=== PATIENT | female | born 1970 | race Caucasian/White ===

== ENCOUNTER 2018-01-01 19:59 | Emergency (ER) | payer OTHER ==
--- NOTE | 2018-01-01 20:08 | PDOC ---
History of Present Illness - General History Source: Patient Exam Limitations: No Limitations - History of Present Illness Initial Comments: 01/01/18 20:59 The patient is a 47 year old female, with a significant past medical history of HLD, who presents to the emergency department with, 4 days of worsening back pain. As per patient, she got up from her seat too fast when her pain onset. Her pain is localized to the sacroiliac joint and radiates to her right buttock. She denies any alleviating factors. She has taking diclofenac oral and gel, without relief. She denies any recent injuries. She denies lifting anything heavy. She denies recent fevers, chills, headache or dizziness. She denies recent nausea, vomit, diarrhea or constipation. She denies recent dysuria, frequency, urgency or hematuria. She denies recent chest pain or shortness of breath. Allergies: Penicillins. Past surgical history: None reported. Social history: Nonsmoker. Denies EtOH use and recreational drug use. <She Garsia - Last Filed: 01/01/18 21:04> <Lindsey Silva - Last Filed: 01/02/18 05:00> - General Chief Complaint: Pain, Acute Stated Complaint: PULLED MUSCLE RIGHT SIDE OF BACK Time Seen by Provider: 01/01/18 20:02 Past History <She Garsia - Last Filed: 01/01/18 21:04> <Lindsey Silva - Last Filed: 01/02/18 05:00> - Past Medical History Allergies/Adverse Reactions: Allergies Allergy/AdvReac Type Severity Reaction Status Date / Time Penicillins Allergy Verified 01/01/18 20:05 Home Medications: Ambulatory Orders Ketorolac Tromethamine [Toradol] 10 mg PO TID PRN #15 tablet 01/01/18 Oxycodone HCl/Acetaminophen [Percocet 5-325 mg Tablet] 1 tab PO Q6H PRN #6 tablet MDD 3 tabs 01/01/18 Review of Systems - Review of Systems Able to Perform ROS?: Yes Comments:: 01/01/18 20:59 CONSTITUTIONAL: Absent: fever, no chills, no fatigue EYES: Absent: visual changes ENT: Absent: ear pain, no sore throat CARDIOVASCULAR: Absent: chest pain, no palpitations RESPIRATORY: Absent: cough, no SOB GI: Absent: abdominal pain, no nausea, no vomiting, no constipation, no diarrhea GENITOURINARY: Absent: dysuria, no frequency, no hematuria MUSKULOSKELETAL: Present: Back pain. Absent: no arthralgia, no myalgia SKIN: Absent: rash NEURO: Absent: headache All Other Systems: Reviewed and Negative <She Garsia - Last Filed: 01/01/18 21:04> *Physical Exam - Vital Signs Last Vital Signs Temp Pulse Resp BP Pulse Ox 98.4 F 73 16 120/82 100 01/01/18 20:11 01/01/18 20:11 01/01/18 20:11 01/01/18 20:11 01/01/18 20:11 - Physical Exam Comments: 01/01/18 21:04 GENERAL: The patient is awake, alert, and fully oriented, in no acute distress. HEAD: Normal with no signs of trauma. EYES: Pupils equal, round and reactive to light, extraocular movements intact, sclera anicteric, conjunctiva clear with no pallor. ENT: Ears normal, nares patent, oropharynx clear without exudates. Moist mucous membranes. NECK: Normal range of motion, supple without lymphadenopathy, JVD, or masses. LUNGS: Breath sounds equal, clear to auscultation bilaterally. No wheeze/ crackles. HEART: Regular rate and rhythm, normal S1 and S2 without murmur or rub. BACK: No flank pain. No meningeal signs. ABDOMEN: Soft/nontender/nondistended. BS wnl. No guarding or rebound. No palpable masses. No hepatosplenomegaly. +EXTREMITIES: Tenderness to the right sacroiliac joint. Positive right straight leg raise. Normal range of motion, no edema. No clubbing or cyanosis. No cords , erythema, or tenderness. NEUROLOGICAL: Cranial nerves II through XII grossly intact. Normal speech, normal gait. PSYCH: Normal mood, normal affect. SKIN: Warm, Dry, normal turgor, no rashes or lesions noted. <She Garsia - Last Filed: 01/01/18 21:04> ED Treatment Course - ADDITIONAL ORDERS Additional order review: Laboratory Results 01/01/18 20:10 Urine Color Yellow Urine Appearance Sl cloudy Urine pH 5.5 Ur Specific [place] 1.010 Urine Protein Negative Urine Glucose (UA) Negative Urine Ketones Negative Urine Blood Trace-intact H Urine Nitrite Positive Urine Bilirubin Negative Urine Urobilinogen 0.2 Ur Leukocyte Esterase 3+ H Urine RBC 5-10 Urine WBC >100 Ur Epithelial Cells Few Amorphous Urates Few Urine Bacteria Moderate Urine HCG, Qual Negative <She Garsia - Last Filed: 01/01/18 21:04> Progress Note - Progress Note Progress Note: Documentation has been prepared under my direction and personally reviewed by me in its entirety. I attest that this documented accurately reflects all work, treatment, procedures and medical decision making performed by me. 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 Patient does not recall actual trauma to the area but initial pain began when she suddenly stood up from a seated position. 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 Patient has not had relief despite use of diclofenac gel/tablets. Exam as noted. Patient was offered Toradol IM but refused. She will be given prescription for Toradol tablets. She also asked for stronger pain medication for nighttime use. She will be given a small (#6) prescription for Percocet 5/325. She is been given referral information to Dr. Lopez, spinal surgeon with whom she should arrange follow-up within the next few days. <Lindsey Silva - Last Filed: 01/02/18 05:00> *DC/Admit/Observation/Transfer - Attestations Scribe Attestion: 01/01/18 21:00 Documentation prepared by She Garsia, acting as medical instrument technician for Lindesy Silva MD. <She Garsia - Last Filed: 01/01/18 21:04> <Lindsey Silva - Last Filed: 01/02/18 05:00> Diagnosis at time of Disposition: Lower back pain Qualifiers: Chronicity: acute Back pain laterality: right Sciatica presence: with sciatica Sciatica laterality: sciatica of right side Qualified Code(s): M54.41 - Lumbago with sciatica, right side - Discharge Dispostion Disposition: HOME Condition at time of disposition: Stable - Prescriptions Prescriptions: Ketorolac Tromethamine [Toradol] 10 mg PO TID PRN #15 tablet PRN Reason: Back Pain Oxycodone HCl/Acetaminophen [Percocet 5-325 mg Tablet] 1 tab PO Q6H PRN #6 tablet MDD 3 tabs PRN Reason: Severe Pain - Referrals Referrals: London Lopez MD [Staff Physician] - Call tomorrow - Patient Instructions Printed Discharge Instructions: Low Back Pain Additional Instructions: Rest; avoid lifting/pulling heavy objects for the next week No work for the next 2 days Toradol 10 mg up to 3 times a day as needed for pain; take with food Percocet 5/325 as needed for severe pain Follow-up call orthopedic group () tomorrow for follow-up within the next 3 -4 days Drink plenty of water; we will call you if you need antibiotics for bladder infection Print Language: YEMENI - Post Discharge Activity Forms/Work/School Notes: Back to Work
[2018-01-01 20:19] VITALS: BP 120/82; PULSE 73; TEMP 98.4; BMI 29.2
[2018-01-01 20:41] LABS: HCG,QUALITATIVE URINE NEGATIVE
[2018-01-01 20:47] LABS: URINE APPEARANCE SL CLOUDY; URINE BILIRUBIN NEGATIVE (NEGATIVE); URINE COLOR YELLOW; URINE GLUCOSE (UA) NEGATIVE (NEGATIVE); URINE KETONE NEGATIVE (NEGATIVE)
[2018-01-01 20:48] LABS: PH,URINE 5.5 (4.5-8); URINE LEUK ESTERASE 3+ (NEGATIVE); URINE NITRITE POSITIVE (NEGATIVE); URINE PROTEIN NEGATIVE (NEGATIVE); URINE UROBILINOGEN 0.2 (0.2-1.0)
[2018-01-01 20:52] LABS: URINE WBC >100 (0-5)
[2018-01-01 20:53] LABS: AMORP URATES FEW /hpf (NONE SEEN); EPI CELLS FEW /HPF; URINE BACTERIA MODERATE /hpf (NEGATIVE)
== END 2018-01-01 21:10 | disposition home or self-care (01) ==
LOC: FER 19:59
DX: M54.41 Lumbago with sciatica, right side (principal); E78.5 Hyperlipidemia, unspecified; Z88.0 Allergy status to penicillin
CPT/HCPCS: 81003; 81015; 84703; 99281-25

== ENCOUNTER 2018-04-08 10:53 | Emergency (ER) | payer OTHER ==
[2018-04-08 10:58] VITALS: BP 129/96; PULSE 72; TEMP 98.5; BMI 30.9
--- NOTE | 2018-04-08 11:41 | PDOC ---
History of Present Illness - General Chief Complaint: Vaginal Bleeding Stated Complaint: i have my period x 3 weeks Time Seen by Provider: 04/08/18 11:41 History Source: Patient, Significant Other - History of Present Illness Initial Comments: 04/08/18 11:55 48 year old female with no PMH presents to ED for vaginal bleeding x15 days. She states that her period came a week early, and has lasted longer than usual. She states she was using 1-2 pads per day up until Tuesday, when the bleeding decreased to spotting. She denies clots. She denies pelvis pain/cramping, abdominal pain, nausea, vomiting, fever, chills, chest pain, shortness of breath , lightheadedness, vaginal discharge. Allergies - Penicillin Past History - Past Medical History Allergies/Adverse Reactions: Allergies Allergy/AdvReac Type Severity Reaction Status Date / Time Penicillins Allergy Verified 04/08/18 10:54 Home Medications: Ambulatory Orders Famotidine [Pepcid] 20 mg PO BID #28 tablet 04/08/18 Naproxen 500 mg PO BID #28 tablet 04/08/18 COPD: No Hypercholesterolemia: Yes Thyroid Disease: Yes - Suicide/Smoking/Psychosocial Hx Smoking History: Never smoked Have you smoked in the past 12 months: No Hx Alcohol Use: No Drug/Substance Use Hx: No Substance Use Type: None Review of Systems - Review of Systems Able to Perform ROS?: Yes Comments:: 04/08/18 12:14 General: denies fever, chills, night sweats, generalized weakness. HEENT: denies sore throat, rhinorrhea, ear pain. Heart: denies chest pain, palpitations, syncope, lower extremity swelling, diaphoresis. Respiratory: denies shortness of breath, cough, sputum production, hemoptysis. Abdomen: denies abdominal pain, nausea, vomiting, diarrhea, constipation, blood in stool. : admits to vaginal bleeding. denies pelvic pain, pelvic cramping, vaginal discharge, dysuria, increased urinary frequency, hematuria, urinary incontinence , flank pain. Back: denies back pain. Musculoskeletal: denies joint pain, muscle pain, joint swelling. Neurological: denies headache, dizziness, numbness, tingling, weakness. Skin: denies rash, laceration, abrasion. *Physical Exam - Vital Signs Last Vital Signs Temp Pulse Resp BP Pulse Ox 98.5 F 72 18 129/96 100 04/08/18 10:54 04/08/18 10:54 04/08/18 10:54 04/08/18 10:54 04/08/18 10:54 - Physical Exam Comments: 04/08/18 12:15 Constitutional: Well-nourished, Well-developed, appearing stated age. HEENT: head is normocephalic, atraumatic. EOMI. PERRLA. Neck: supple. Full ROM. Heart: regular rhythm. no murmurs, rubs or gallops. Lungs: clear to auscultation bilaterally. no crackles, rhonchi or wheezing. no stridor. Abdomen: soft, nontender. normal bowel sounds. no rebound, guarding, masses. Extremities: Peripheral pulses intact and equal. No lower extremity edema. Neurological: CN 2-12 grossly intact. Moves all four extremities. Psych: awake, alert, oriented x3. Follows commands. Answers questions appropriately. ED Treatment Course - LABORATORY CBC & Chemistry Diagram: 04/08/18 11:58 Medical Decision Making - Medical Decision Making 04/08/18 12:00 48 year old female with no PMH presents to ED for vaginal bleeding x15 days, spotting x3 days, without pelvic/abdominal pain, denies clots, or chest pain/ shortness of breath/lightheadedness. Initial Vital Signs Temp Pulse Resp BP Pulse Ox 98.5 F 72 18 129/96 100 04/08/18 10:54 04/08/18 10:54 04/08/18 10:54 04/08/18 10:54 04/08/18 10:54 Afebrile. No tachycardia. No tachypnea. No hypotension. No hypoxia on room air. Concern for anemia - Pending CBC Concern for - Pending urine test 04/08/18 12:48 CBC WBC 6.4 K/mm3 (4.0-10.8) 04/08/18 11:58 RBC 3.95 M/mm3 (3.60-5.2) 04/08/18 11:58 Hgb 11.8 GM/dl (10.7-15.3) 04/08/18 11:58 Hct 35.3 % (32.4-45.2) 04/08/18 11:58 MCV 89.4 fl (80-96) 04/08/18 11:58 MCH 29.8 pg (25.7-33.7) 04/08/18 11:58 MCHC 33.3 g/dl (32.0-36.0) 04/08/18 11:58 RDW 13.5 % (11.6-15.6) 04/08/18 11:58 Plt Count 189 K/MM3 (134-434) 04/08/18 11:58 MPV 10.1 fl (7.5-11.1) 04/08/18 11:58 Absolute Neuts (auto) 3.5 K/mm3 04/08/18 11:58 Neutrophils % 54.4 % (42.8-82.8) 04/08/18 11:58 Lymphocytes % 34.3 % (8-40) 04/08/18 11:58 Monocytes % 8.1 % (3.8-10.2) 04/08/18 11:58 Eosinophils % 2.5 % (0-4.5) 04/08/18 11:58 Basophils % 0.7 % (0-2.0) 04/08/18 11:58 No leukocytosis. No anemia. No thrombocytopenia. Urine Test Results Urine Color Yellow 04/08/18 11:24 Urine Appearance Clear 04/08/18 11:24 Urine pH 6.5 (4.5-8) 04/08/18 11:24 Ur Specific [place] 1.025 (1.010-1.035) 04/08/18 11:24 Urine Protein Negative (NEGATIVE) 04/08/18 11:24 Urine Glucose (UA) Negative (NEGATIVE) 04/08/18 11:24 Urine Ketones Negative (NEGATIVE) 04/08/18 11:24 Urine Blood 3+ (NEGATIVE) H 04/08/18 11:24 Urine Nitrite Negative (NEGATIVE) 04/08/18 11:24 Urine Bilirubin Negative (NEGATIVE) 04/08/18 11:24 Ur Leukocyte Esterase Negative (NEGATIVE) 04/08/18 11:24 Urine RBC 20-40 /hpf (0-3) 04/08/18 11:24 Urine WBC 0-2 (0-5) 04/08/18 11:24 Ur Epithelial Cells Few /HPF 04/08/18 11:24 Urine Bacteria None seen /hpf (NEGATIVE) 04/08/18 11:24 No evidence of UTI. Blood noted likely from vaginal bleeding. Urine test negative. I spoke with the patient and her about her results, they stated they understood. I spoke with the patient and her about the importance of following up with an OBGYN doctor, they stated they understood. I spoke with the patient about return precautions, including but not limited to : increased bleeding, clots, lightheadedness, pre-syncope, syncope, chest pain, shortness of breath, fever, chills, nausea, vomiting. They stated they understood. Pt will be discharged with prescription for Naproxen. - Pt stated NSAIDs irritate her stomach - Prescription for Pepcid sent to pharmacy. Pt will be discharged. *DC/Admit/Observation/Transfer Diagnosis at time of Disposition: Vaginal bleeding - Discharge Dispostion Disposition: HOME Condition at time of disposition: Stable - Prescriptions Prescriptions: Famotidine [Pepcid] 20 mg PO BID #28 tablet Naproxen 500 mg PO BID #28 tablet - Referrals - Patient Instructions Printed Discharge Instructions: DI for Vaginal Bleeding Additional Instructions: You were seen today for vaginal bleeding. Your blood work was normal. You are not anemic at this time. Your urine analysis was normal. You do not have a urinary tract infection at this time. Your urine test was negative. I have written a prescription for Pepcid to aid with the stomach pain associated with taking NSAIDs like ibuprfen or naproxen. Take as directed on bottle. I have written a prescription for Naproxen and sent it to your pharmacy. Take as directed on bottle. Take at meal time with a full stomach to try to avoid stomach pain. Follow up with your OBGYN within 2 days. Call their office Tuesday and make an appointment for this week. Tell them you were seen in the Emergency Department. Your care is not complete until you follow up. Return to the Emergency Department for increased bleeding, clots in the blood, chest pain, shortness of breath, nausea, vomiting, fever, chills, lightheadedness, dizziness or any other new, worsening or concerning symptoms. - Post Discharge Activity
--- NOTE | 2018-04-08 12:10 | PDOC ---
Attending Attestation - Resident Resident Name: Rachel Reyes - ED Attending Attestation I have performed the following: I have examined & evaluated the patient, The case was reviewed & discussed with the resident, I agree w/resident's findings & plan, Exceptions are as noted - HPI HPI: 04/08/18 12:07 3 week history of vaginal bleeding, 2 pads per day until approximately 2 days ago, spotting since then. She has had normal monthly menses until this last episode of bleeding, which began about a week before her next period was due. There was no cramping or other abdominal pain. There is been no nausea vomiting or other systemic symptom. No vaginal discharge. No history of other C[place] CARMAN disease. Normal pregnancies in the past. - Physicial Exam PE: 04/08/18 12:09 Physical exam reveals normal vital signs, no orthostatic changes, lightheadedness, or dizziness with standing. No abdominal or pelvic tenderness to examination. No pallor or icterus. - Medical Decision Making 04/08/18 12:09 Impression: Perimenopausal bleeding. Rule out . Rule out anemia. Plan: Urine test and CBC. Consider hormonal treatment if severely anemic. Otherwise follow-up with primary physician/[facility]. 04/08/18 13:14 test is negative. H&H 11 and 35. Nonsteroidals prescribed, as well as H2 juju for stomach discomfort if necessary. [facility] follow-up as directed. Fully ambulatory and in no pain or other distress upon discharge with to follow-up as recommended
[2018-04-08 12:22] LABS: BASO % 0.7 % (0-2.0); EOS % 2.5 % (0-4.5); HEMATOCRIT 35.3 % (32.4-45.2); HEMOGLOBIN 11.8 GM/dl (10.7-15.3); LYMPH % 34.3 % (8-40); MCH 29.8 pg (25.7-33.7); MCHC 33.3 g/dl (32.0-36.0); MEAN CELL VOLUME 89.4 fl (80-96); MEAN PLT VOLUME 10.1 fl (7.5-11.1); MONO % 8.1 % (3.8-10.2); NEUT % 54.4 % (42.8-82.8); PLATELET COUNT 189 K/MM3 (134-434); RBC 3.95 M/mm3 (3.60-5.2); RDW 13.5 % (11.6-15.6); WHITE BLOOD COUNT 6.4 K/mm3 (4.0-10.8)
[2018-04-08 12:46] LABS: PH,URINE 6.5 (4.5-8); URINE APPEARANCE Clear; URINE BILIRUBIN Negative (NEGATIVE); URINE COLOR Yellow; URINE GLUCOSE (UA) Negative (NEGATIVE); URINE KETONE Negative (NEGATIVE); URINE LEUK ESTERASE Negative (NEGATIVE); URINE NITRITE Negative (NEGATIVE); URINE PROTEIN Negative (NEGATIVE); URINE UROBILINOGEN 0.2 (0.2-1.0)
[2018-04-08 13:02] LABS: EPI CELLS FEW /HPF; URINE RBC 20-40 /hpf (0-3); URINE WBC 0-2 (0-5)
[2018-04-08 13:03] LABS: URINE BACTERIA NONE SEEN /hpf (NEGATIVE)
== END 2018-04-08 13:20 | disposition home or self-care (01) ==
LOC: FER 10:53
DX: N93.9 Abnormal uterine and vaginal bleeding, unspecified (principal); E07.9 Disorder of thyroid, unspecified; E78.00 Pure hypercholesterolemia, unspecified
CPT/HCPCS: 36415; 81003; 81015; 84703; 85025; 99282-25

== ENCOUNTER → 2019-01-05 | Emergency (ER) | payer OTHER ==
[2019-01-05 17:37] VITALS: BP 119/80; PULSE 79; TEMP 98.4; BMI 30.9
== END | disposition left against medical advice (07) ==
LOC: FER 17:27
DX: R60.9 Edema, unspecified (principal)
CPT/HCPCS: 99281-25

== ENCOUNTER 2022-07-20 04:41 | Day surgery (SDC) | payer OTHER ==
[2022-07-16 16:08] VITALS: BMI 28.1
[2022-07-20 10:37] VITALS: BP 114/80; PULSE 61; RESP 16
[2022-07-20 14:13] VITALS: TEMP 97.3
== END 2022-07-20 10:39 | disposition home or self-care (01) ==
LOC: JASU-ENDO 04:41
PROVIDERS: ATTEND Internal Medicine Gastroenterology
PROC: 0DB78ZX Excision of Stomach, Pylorus, Via Natural or Artificial Opening Endoscopic, Diagnostic (ICD-10-PCS; 2022-07-20)
PROC: 0DB68ZX Excision of Stomach, Via Natural or Artificial Opening Endoscopic, Diagnostic (ICD-10-PCS; principal; 2022-07-20 09:15)
DX: K29.70 Gastritis, unspecified, without bleeding (principal)
CPT/HCPCS: 81025; 88305-TC; 88342-TC

== ENCOUNTER 2022-09-30 04:22 | Day surgery (SDC) | payer OTHER ==
[2022-09-29 11:20] VITALS: BMI 28.1
[2022-09-30 12:35] VITALS: BP 116/80; PULSE 60; RESP 15
[2022-09-30 14:58] VITALS: TEMP 98
== END 2022-09-30 12:20 | disposition home or self-care (01) ==
LOC: JASU-ENDO 04:22
PROVIDERS: ATTEND Internal Medicine Gastroenterology
PROC: 0DJD8ZZ Inspection of Lower Intestinal Tract, Via Natural or Artificial Opening Endoscopic (ICD-10-PCS; principal; 2022-09-30 11:15)
DX: Z12.11 Encounter for screening for malignant neoplasm of colon (principal); K63.89 Other specified diseases of intestine; K64.8 Other hemorrhoids